=== PATIENT | female | born 1995 | race Two or more races ===

== ENCOUNTER 2018-05-31 12:16 | Inpatient (IN) | payer OTHER ==
[2018-05-31] MEDS ORDERED: CITRIC ACID/SODIUM CITRATE 30 ML UNIT-DOSE CUP PO ONE (13:00)
[2018-05-31] MEDS ORDERED: ELECTROLYTE-148 SOLN 500 ML IV ONE ×2 (13:00→13:30)
[2018-05-31 13:28] LABS: BASO % 0.2 % (0-2.0); HEMATOCRIT 39.4 % (32.4-45.2); HEMOGLOBIN 13.2 GM/dL (10.7-15.3); LYMPH % 18.4 % (8-40); MCH 29.5 pg (25.7-33.7); MCHC 33.6 g/dl (32.0-36.0); MEAN CELL VOLUME 87.9 fl (80-96); MEAN PLT VOLUME 9.1 fl (7.5-11.1); MONO % 8.1 % (3.8-10.2); NEUT % 72.3 % (42.8-82.8); PLATELET COUNT 223 K/MM3 (134-434); RBC 4.48 M/mm3 (3.60-5.2); RDW 14.8 % (11.6-15.6); WHITE BLOOD COUNT 8.5 K/mm3 (4.0-10.0)
[2018-05-31 13:39] LABS: INR 0.97 (0.83-1.09)
[2018-05-31 13:41] LABS: ACTIVATED PTT 25.9 SECONDS (25.2-36.5)
[2018-05-31 13:52] LABS: ANION GAP 9 (8-16); BLOOD UREA NITROGEN 9 mg/dL (7-18); CALCIUM 9.2 mg/dL (8.5-10.1); CHLORIDE 106 mmol/L (98-107); CO2 23 mmol/L (21-32); CREATININE 0.6 mg/dL (0.55-1.02); GLUCOSE,RANDOM 68 mg/dL (74-106); POTASSIUM 4.3 mmol/L (3.5-5.1); SODIUM 138 mmol/L (136-145)
[2018-05-31 14:34] VITALS: BMI 38.6
[2018-05-31] MEDS ORDERED: OXYTOCIN 20 UNITS in 0.9% NS 20 UNIT/1,000 ML INFUS.BAG IV ONE ×2 (16:21→17:59)
[2018-05-31] MEDS ORDERED: BUPIVACAINE 0.75% IN DEXTROSE/PF 2ML AMPULE NR ONE (16:22)
[2018-05-31] MEDS ORDERED: morphine SULFATE/Preservative Free 0.5 MG/ML (1cc Syringe) ONE (16:22)
[2018-05-31] MEDS ORDERED: ceFAZolin SODIUM 1 GM VIAL ONE (16:23)
[2018-05-31] MEDS ORDERED: PHENYLEPHRINE HCL 10 MG/1 ML SINGLE DOSE VIAL ONE (16:23)
[2018-05-31] MEDS ORDERED: OXYTOCIN 10 UNITS/ML VIAL ONE (16:50)
[2018-05-31] MEDS ORDERED: KETOROLAC TROMETHAMINE 30 MG/1 ML VIAL ONE (16:54)
[2018-05-31] MEDS ORDERED: diphenhydrAMINE HCL 25 MG CAPSULE (FP) PO PRN (17:21)
[2018-05-31] MEDS ORDERED: oxyCODONE HCL 5 MG TABLET PO PRN ×2 (17:21)
[2018-05-31] MEDS ORDERED: METHYLERGONOVINE MALEATE 0.2 MG/1 ML AMP IM PRN (17:21)
[2018-05-31] MEDS ORDERED: WITCH HAZEL 50% (TUCKS) 40 PAD/JAR PAD TP PRN (17:21)
[2018-05-31] MEDS ORDERED: BENZOCAINE 28 GM HEMORRHOIDAL OINTMENT PR PRN (17:21)
[2018-05-31] MEDS ORDERED: BENZOCAINE 20% 57 GM BOTTLE TP PRN (17:21)
--- NOTE | 2018-05-31 17:31 | HP ---
Past Medical History - Admission Chief Complaint: preganancy 40 weeks , previous c/s , request of c/s History Source: Patient Limitations to Obtaining History: No Limitations, Language Barrier - Past Medical History ...: 2 ...Para: 1 ...Term: 1 ...LMP: 08/16/17 ... Weeks Gestation by Dates: 41.1 ...EDC by Dates: 05/23/18 ...EDC by Sono: 05/25/18 - Past Surgical History Past Surgical History: Yes: Hx Myomectomy: No Hx Transabdominal Cerclage: No - Smoking History Smoking history: Never smoked Have you smoked in the past 12 months: No - Alcohol/Substance Use Hx Alcohol Use: No - Social History Usual Living Arrangement: Yes: With Spouse History of Recent Travel: No Home Medications - Allergies Allergies/Adverse Reactions: Allergies Allergy/AdvReac Type Severity Reaction Status Date / Time No Known Allergies Allergy Verified 05/31/18 12:52 - Home Medications Home Medications: Ambulatory Orders Ferrous Sulfate [Feosol] 325 mg PO DAILY 05/31/18 Ibuprofen [Motrin -] 600 mg PO QID #28 tablet 05/31/18 Vitamins (Sjr) - 1 tab PO DAILY 05/31/18 Review of Systems - Review of Systems Constitutional: reports: No Symptoms Eyes: reports: No Symptoms HENT: reports: No Symptoms Neck: reports: No Symptoms Cardiovascular: reports: No Symptoms Respiratory: reports: No Symptoms Gastrointestinal: reports: No Symptoms Genitourinary: reports: No Symptoms Musculoskeletal: reports: Extremity Pain, Muscle Cramps Neurological: reports: No Symptoms Endocrine: reports: No Symptoms Hematology/Lymphatic: reports: No Symptoms Psychiatric: reports: No Symptoms Physical Exam - Maternity Vital Signs: Vital Signs Temperature 98.5 F 05/31/18 12:16 Pulse Rate 92 H 05/31/18 12:16 Respiratory Rate 18 05/31/18 12:16 Blood Pressure 119/65 05/31/18 12:16 O2 Sat by Pulse Oximetry (%) Constitutional: Yes: Well Nourished, No Distress, Calm Eyes: Yes: WNL, Conjunctiva Clear, EOM Intact HENT: Yes: WNL, Atraumatic, Normocephalic Neck: Yes: WNL, Supple, Trachea Midline Cardiovascular: Yes: WNL, Regular Rate and Rhythm Breast(s): Yes: WNL - Abdominal Exam/OB Fundal Height: 40 Number of Fetuses: Single Presentation: Vertex Contractions: No Intensity: Unaware Monitor Mode: External Heart Rate Location: [facility] Category: I Accelerations: Uniform Decelerations: None - Vaginal Exam/OB Vaginal Bleediing: No Speculum Exam: No Dilatation (cm): closed Amniotic Membrane Status: Intact Presentation: Vertex/Position Station: -3 - Physical Exam Musculoskeletal: Yes: WNL Extremities: Yes: WNL Edema: Yes Edema: LLE: Trace, RLE: Trace Deep Tendon Reflex Grade: Normal +2 Psychiatric: Yes: WNL - Labs Lab Results: CBC, BMP 05/31/18 13:12 05/31/18 13:12 Hemorrhage Risk Assessment - Risk Factors Medium Risk Factors: Yes: Prior , uterine surgery,or multiple laparotomies Risk Score: 1 Risk Level: Medium Risk Problem List - Problems (1) Post term over 40 weeks Code(s): O48.0 - POST-TERM (2) Previous section complicating , antepartum condition or complication Code(s): O34.219 - MATERNAL CARE FOR UNSP TYPE SCAR FROM PREVIOUS DEL Assessment/Plan repeat c/s, rba discussed
[2018-05-31] MEDS ORDERED: ONDANSETRON 4 MG/2 ML VIAL IVPUSH PRN (17:39)
[2018-05-31] MEDS ORDERED: DEXTROSE 5%-LACTATED RINGERS 1,000 ML IV SCH (17:45)
[2018-05-31] MEDS ORDERED: OXYTOCIN 20 UNITS in 0.9% NS 20 UNIT/1,000 ML INFUS.BAG IV SCH (17:45)
[2018-05-31] MEDS ORDERED: CEFAZOLIN 1 GM in DEXTROSE 5%-WATER - 50 ML IVPB SCH (18:00)
[2018-05-31] MEDS: IBUPROFEN 800 MG/8 ML IJ IVPB PRN (20:03)
--- NOTE | 2018-05-31 21:07 | OP ---
DATE OF OPERATION: 05/31/2018 PREOPERATIVE DIAGNOSES: at 39 weeks, previous section, request of repeat section. POSTOPERATIVE DIAGNOSES: at 39 weeks, previous section, request of repeat section. PROCEDURE: Repeat low-segment transverse section. SURGEON: Reina Mcallister MD SCHOOL PROGRAM DIRECTOR: JEWEL Rivera ANESTHESIA: Spinal. ANESTHESIOLOGIST: Anna Espinal MD ESTIMATED BLOOD LOSS: 500 mL. FINDING: Live baby boy, 8 and 9, ROT position, cord around the neck x1. OPERATION: Patient was taken to operating room on adequate spinal anesthesia. Abdomen and perineum was prepped and draped. Pfannenstiel abdominal skin incision was made. Abdominal wall was cut layer by layer until peritoneum was exposed and incised. Upon entering the abdominal cavity, lower uterine segment was identified and uterovesical fold of peritoneum established. Bladder was pushed down. Then with the lower blade of the Joaquín retractor in the pelvis, a low transverse uterine incision was made, incision extended laterally. Amniotic sac was entered, clear fluid. Head delivered from right occiput transverse position, nasopharynx was suctioned, and live baby boy was delivered without any difficulty. Placenta was delivered manually. Uterine cavity was cleaned of all remaining tissue. Uterine incision was closed in 2 layers, 1st layer with 0 Biosyn continuous suture, the 2nd layer with 0 Biosyn imbricating the 1st layer. Bladder flap was closed with 0 Biosyn continuous suture. Both tubes and ovaries were checked, were normal, no active bleeding was seen. All the lap pad, sponge count, instrument count were correct. Then peritoneum was closed with 0 Biosyn continuous suture. Muscles were brought together with interrupted suture of 0 Biosyn. Fascia was closed with 0 Biosyn continuous suture, subcutaneous fat with interrupted suture of 0 Biosyn, and the skin was closed with vasyl. Patient tolerated procedure well, left the OR in good condition. REINA MCALLISTER M.D. /[id number]
[2018-05-31] MEDS: OXYTOCIN 20 UNITS in 0.9% NS 20 UNIT/1,000 ML INFUS.BAG IV SCH (23:11)
[2018-06-01] MEDS ORDERED: DEXTROSE 5%-WATER - 50 ML IVPB ONE ×2 (01:50→08:47)
[2018-06-01] MEDS ORDERED: ceFAZolin SODIUM 1 GM VIAL ONE ×2 (01:50→08:48)
[2018-06-01] MEDS: CEFAZOLIN 1 GM in DEXTROSE 5%-WATER - 50 ML IVPB SCH ×2 (01:55→09:06)
[2018-06-01] MEDS: OXYTOCIN 20 UNITS in 0.9% NS 20 UNIT/1,000 ML INFUS.BAG IV SCH (06:00)
[2018-06-01] MEDS: SIMETHICONE 80 MG TAB.CHEW (FP) PO PRN ×3 (06:15→18:09)
--- NOTE | 2018-06-01 07:08 | PN ---
Progress Note (short form) - Note Progress Note: pod 1, s/p repeat c/s. no c/o CBC, BMP 05/31/18 13:12 Last Vital Signs Temp Pulse Resp BP Pulse Ox 98.0 F 78 18 120/73 99 06/01/18 06:00 06/01/18 06:00 06/01/18 06:00 06/01/18 06:00 05/31/18 18:20 abdomen soft, no distension , no cva incision dry, clean no calf tenderness lochia mild nunez clear urine plan ambulate , advance diet cbc Problem List - Problems (1) Post term over 40 weeks Code(s): O48.0 - POST-TERM (2) Previous section complicating , antepartum condition or complication Code(s): O34.219 - MATERNAL CARE FOR UNSP TYPE SCAR FROM PREVIOUS DEL
[2018-06-01 07:16] LABS: BASO % 0.3 % (0-2.0); EOS % 1.5 % (0-4.5); HEMATOCRIT 35.2 % (32.4-45.2); LYMPH % 16.5 % (8-40); MCH 30.1 pg (25.7-33.7); MCHC 34.1 g/dl (32.0-36.0); MEAN CELL VOLUME 88.3 fl (80-96); MEAN PLT VOLUME 8.8 fl (7.5-11.1); MONO % 7.6 % (3.8-10.2); NEUT % 74.1 % (42.8-82.8); PLATELET COUNT 178 K/MM3 (134-434); RBC 3.99 M/mm3 (3.60-5.2); RDW 14.4 % (11.6-15.6); WHITE BLOOD COUNT 9.4 K/mm3 (4.0-10.0)
--- NOTE | 2018-06-01 08:53 | PN ---
Progress Note (short form) - Note Progress Note: Anesthesia post op/Pain Pt seen and examined S:Alert and awake comfortable O: Vital Signs Temperature 98.0 F 06/01/18 06:00 Pulse Rate 78 06/01/18 06:00 Respiratory Rate 18 06/01/18 08:00 Blood Pressure 120/73 06/01/18 06:00 O2 Sat by Pulse Oximetry (%) 99 05/31/18 18:20 CBC, BMP 06/01/18 06:00 05/31/18 13:12 A/P Current Active Problems Post term over 40 weeks (Acute) Previous section complicating , antepartum condition or complication (Acute) s/p c section Doing well post op Continue current care Fausto Fiore MD
[2018-06-01] MEDS: ENOXAPARIN NA (PORCINE) 40 MG/0.4 ML DISP.SYRIN SQ SCH (09:06)
[2018-06-01] MEDS: IBUPROFEN 800 MG/8 ML IJ IVPB PRN (09:36)
[2018-06-01] MEDS: ACETAMINOPHEN 325 MG TABLET (FP) PO PRN ×2 (14:27→20:43)
[2018-06-01] MEDS ORDERED: BISACODYL 10 MG SUPP.RECT RC PRN (17:21)
[2018-06-01] MEDS: IBUPROFEN 600 MG TABLET (FP) PO PRN (18:09)
[2018-06-02] MEDS: SIMETHICONE 80 MG TAB.CHEW (FP) PO PRN ×2 (03:49→20:59)
[2018-06-02] MEDS: ACETAMINOPHEN 325 MG TABLET (FP) PO PRN ×3 (03:49→15:47)
[2018-06-02] MEDS: IBUPROFEN 600 MG TABLET (FP) PO PRN ×3 (03:49→15:48)
[2018-06-02] MEDS: ENOXAPARIN NA (PORCINE) 40 MG/0.4 ML DISP.SYRIN SQ SCH (10:01)
--- NOTE | 2018-06-02 14:09 | PN ---
Post Progress Note - Subjective Subjective: Pt feeling well. Tolerating diet. Ambulating. +flatus Post Day: 2 Type of Delivery: Repeat C/S Vital Signs: Vital Signs Temperature 98.4 F 06/02/18 08:06 Pulse Rate 94 H 06/02/18 08:06 Respiratory Rate 18 06/02/18 08:06 Blood Pressure 112/55 06/02/18 08:06 O2 Sat by Pulse Oximetry (%) 99 05/31/18 18:20 Breast Exam: Yes: Soft Uterus: Yes: Fundus Firm Incision: Yes: Mercy intact Abdomen/GI: Yes: Abdomen soft Lochia: Yes: Serosa Lochia, amount: Small Extremities: Yes: Calves non-tender Activity: Ambulating - Labs Labs: CBC WBC 9.4 K/mm3 (4.0-10.0) 06/01/18 06:00 RBC 3.99 M/mm3 (3.60-5.2) 06/01/18 06:00 Hgb 12.0 GM/dL (10.7-15.3) 06/01/18 06:00 Hct 35.2 % (32.4-45.2) 06/01/18 06:00 MCV 88.3 fl (80-96) 06/01/18 06:00 MCH 30.1 pg (25.7-33.7) 06/01/18 06:00 MCHC 34.1 g/dl (32.0-36.0) 06/01/18 06:00 RDW 14.4 % (11.6-15.6) 06/01/18 06:00 Plt Count 178 K/MM3 (134-434) D 06/01/18 06:00 MPV 8.8 fl (7.5-11.1) 06/01/18 06:00 Absolute Neuts (auto) 7.0 # 06/01/18 06:00 Neutrophils % 74.1 % (42.8-82.8) 06/01/18 06:00 Lymphocytes % 16.5 % (8-40) 06/01/18 06:00 Monocytes % 7.6 % (3.8-10.2) 06/01/18 06:00 Eosinophils % 1.5 % (0-4.5) 06/01/18 06:00 Basophils % 0.3 % (0-2.0) 06/01/18 06:00 Nucleated RBC % 0 % (0-0) 06/01/18 06:00 Problem List - Problems (1) S/P repeat low transverse Assessment/Plan: Pt POD #2 s/p rpt c/s doing well ambulation encouraged incentive spirometry pain management as needed routine postop care Dr. Christie Code(s): Z98.891 - HISTORY OF UTERINE SCAR FROM PREVIOUS SURGERY
[2018-06-02] MEDS ORDERED: SENNOSIDES/DOCUSATE COMBO (SENNA PLUS) TABLET (UD) PO PRN (22:00)
[2018-06-03] MEDS: IBUPROFEN 600 MG TABLET (FP) PO PRN ×3 (05:53→20:52)
[2018-06-03] MEDS: SIMETHICONE 80 MG TAB.CHEW (FP) PO PRN ×3 (05:53→20:51)
[2018-06-03] MEDS: ACETAMINOPHEN 325 MG TABLET (FP) PO PRN ×3 (05:53→20:52)
[2018-06-03 08:27] LABS: BASO % 0.2 % (0-2.0); EOS % 2.2 % (0-4.5); HEMATOCRIT 33.2 % (32.4-45.2); HEMOGLOBIN 11.2 GM/dL (10.7-15.3); LYMPH % 12.2 % (8-40); MCH 29.9 pg (25.7-33.7); MCHC 33.8 g/dl (32.0-36.0); MEAN CELL VOLUME 88.4 fl (80-96); MEAN PLT VOLUME 7.9 fl (7.5-11.1); MONO % 6.1 % (3.8-10.2); NEUT % 79.3 % (42.8-82.8); PLATELET COUNT 221 K/MM3 (134-434); RBC 3.76 M/mm3 (3.60-5.2); RDW 14.8 % (11.6-15.6); WHITE BLOOD COUNT 11.2 K/mm3 (4.0-10.0)
--- NOTE | 2018-06-03 10:35 | PN ---
Post Progress Note - Subjective Subjective: Pt without complaints Post Day: 3 Type of Delivery: Repeat C/S Vital Signs: Vital Signs Temperature 98.8 F 06/03/18 08:27 Pulse Rate 97 H 06/03/18 08:27 Respiratory Rate 18 06/03/18 08:27 Blood Pressure 135/71 06/03/18 08:27 O2 Sat by Pulse Oximetry (%) 99 05/31/18 18:20 Breast Exam: Yes: Soft Uterus: Yes: Fundus Firm Incision: Yes: Mercy intact Abdomen/GI: Yes: Abdomen soft Lochia: Yes: Rubra Lochia, amount: Small Extremities: Yes: Calves non-tender Activity: Ambulating - Labs Labs: CBC WBC 11.2 K/mm3 (4.0-10.0) H 06/03/18 08:15 RBC 3.76 M/mm3 (3.60-5.2) 06/03/18 08:15 Hgb 11.2 GM/dL (10.7-15.3) 06/03/18 08:15 Hct 33.2 % (32.4-45.2) 06/03/18 08:15 MCV 88.4 fl (80-96) 06/03/18 08:15 MCH 29.9 pg (25.7-33.7) 06/03/18 08:15 MCHC 33.8 g/dl (32.0-36.0) 06/03/18 08:15 RDW 14.8 % (11.6-15.6) 06/03/18 08:15 Plt Count 221 K/MM3 (134-434) D 06/03/18 08:15 MPV 7.9 fl (7.5-11.1) D 06/03/18 08:15 Absolute Neuts (auto) 8.9 # 06/03/18 08:15 Neutrophils % 79.3 % (42.8-82.8) 06/03/18 08:15 Lymphocytes % 12.2 % (8-40) D 06/03/18 08:15 Monocytes % 6.1 % (3.8-10.2) 06/03/18 08:15 Eosinophils % 2.2 % (0-4.5) 06/03/18 08:15 Basophils % 0.2 % (0-2.0) 06/03/18 08:15 Nucleated RBC % 0 % (0-0) 06/03/18 08:15 Problem List - Problems (1) S/P repeat low transverse Assessment/Plan: Pt POD#3 s/p rpt c/s continue routine pp care Dr. Christie Code(s): Z98.891 - HISTORY OF UTERINE SCAR FROM PREVIOUS SURGERY
[2018-06-03] MEDS: ENOXAPARIN NA (PORCINE) 40 MG/0.4 ML DISP.SYRIN SQ SCH (11:37)
[2018-06-04 08:38] VITALS: BP 130/88; PULSE 80; TEMP 98.5
[2018-06-04] MEDS: IBUPROFEN 600 MG TABLET (FP) PO PRN (09:34)
[2018-06-04] MEDS: ACETAMINOPHEN 325 MG TABLET (FP) PO PRN (09:36)
[2018-06-04] MEDS: ENOXAPARIN NA (PORCINE) 40 MG/0.4 ML DISP.SYRIN SQ SCH (09:42)
[2018-06-04] MEDS: SIMETHICONE 80 MG TAB.CHEW (FP) PO PRN (09:42)
--- NOTE | 2018-06-04 15:59 | DS ---
Physical Exam-ORGANIZATIONAL CONSULTANT Vital Signs: Vital Signs Temperature 98.5 F 06/04/18 08:36 Pulse Rate 80 06/04/18 08:36 Respiratory Rate 18 06/04/18 08:36 Blood Pressure 130/88 06/04/18 08:36 O2 Sat by Pulse Oximetry (%) 99 05/31/18 18:20 Constitutional: Yes: Well Nourished, No Distress, Calm Eyes: Yes: WNL, Conjunctiva Clear, EOM Intact HENT: Yes: WNL, Atraumatic, Normocephalic Neck: Yes: WNL, Supple, Trachea Midline Cardiovascular: Yes: WNL, Regular Rate and Rhythm Respiratory: Yes: WNL, Regular, CTA Bilaterally Gastrointestinal: Yes: WNL ...Rectal Exam: Yes: WNL Renal/: Yes: WNL ....Post : Yes: Uterus firm, Uterus non-tender, Slight lochia rubra Breast(s): Yes: WNL Musculoskeletal: Yes: WNL Extremities: Yes: WNL Integumentary: Yes: WNL Wound/Incision: Yes: Clean/Dry, Well Approximated Neurological: Yes: WNL, Alert, Oriented ...Motor Strength: WNL Psychiatric: Yes: WNL, Alert, Oriented Labs: CBC, BMP 06/03/18 08:15 05/31/18 13:12 Delivery - Delivery Section: Repeat (no complication), Low Flap Transverse Type of Anesthesia: Spinal Episiotomy/Laceration: None EBL (cc): 500 Delivery, Single - Stages of Labor Date of Delivery: 05/31/18 Time of Delivery: 16:48 Time Placenta Delivered: 16:49 Placenta: Yes: Expressed - Condition of Teachers' Aide/Form Layer Present: Yes Name: Jose Shanks Gender: Male Weight: 8 lb 7 oz Position: Right, OT Total Hours ROM (Hrs/Mins): 2mins - 1 Minute Total Score: 8 5 Minutes Total Score: 9 - [place] Feeding Plan Initial Plan: Elected not to breastfeed exclusively throughout hospitalization Discharge Summary Reason For Visit: Current Active Problems Post term over 40 weeks (Acute) Previous section complicating , antepartum condition or complication (Acute) S/P repeat low transverse (Acute) Procedures: Principal: repeat LST c/s Hospital Course: no complication Condition: Good - Instructions Diet, Activity, Other Instructions: regular diet, follow up clinic 1 week Disposition: HOME - Home Medications Comprehensive Discharge Medication List: Ambulatory Orders Ferrous Sulfate [Feosol] 325 mg PO DAILY 05/31/18 Ibuprofen [Motrin -] 600 mg PO QID #28 tablet 05/31/18 Vitamins (Sjr) - 1 tab PO DAILY 05/31/18
--- NOTE | 2018-06-06 15:38 | PATH ---
Surgical Pathology Report Patient Name: KENNEDY GE [facility]. Rec. 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 Specimen(s) Received PLACENTA Clinical History , 40.6 weeks, late transfer to care at 19 weeks Final Diagnosis PLACENTA, : MATURE TRIMESTER PLACENTA WITH TRIVESSEL UMBILICAL CORD AND SHOWING MILD ACUTE CHORIOAMNIONITIS. Electronically Signed Maryana Lewis M.D. Gross Description The specimen is received fresh labeled placenta and is a 506 gram, 23.0 x 14.0 x 2.2 cm. placenta with attached membranes and umbilical cord. The attached membranes are kern, translucent with focal opacities and insert marginally. The umbilical cord measures 39 cm. in length and averages 1.2 cm. in diameter. The cord inserts eccentrically, 2 cm. to the nearest margin. No true knots or strictures are identified. Cut surface of the umbilical cord reveals 3 vessels. The surface is renee-blue with minimal fibrin deposition and appropriate caliber vessels. The maternal surface is red-brown with focal defects. Sectioning reveals red-brown, spongy parenchyma. No lesions are identified. Duco Polisher sections are submitted in three cassettes as follows: 1- membrane rolls and umbilical cord; 2-3- full thickness sections of placenta. 06/05/201806/05/2018
== END 2018-06-04 20:25 | disposition home or self-care (01) | DRG 540 ==
LOC: JLDR 12:16 → J3W 19:10
PROVIDERS: ADMIT Obstetrics & Gynecology; ATTEND Obstetrics & Gynecology
PROC: 10D00Z1 Extraction of Products of Conception, Low, Open Approach (ICD-10-PCS; principal; 2018-05-31)
DX: O34.211 Maternal care for low transverse scar from previous cesarean delivery (principal); O48.0 Post-term pregnancy; O69.81X0 Labor and delivery complicated by cord around neck, without compression, not applicable or unspecified; Z3A.40 40 weeks gestation of pregnancy; Z37.0 Single live birth
CPT/HCPCS: 36415; 80048; 85025; 85610; 85730; 86593; 86850; 86900; 86901; 88307-TC

== ENCOUNTER 2020-06-15 11:27 | Emergency (ER) | payer OTHER ==
--- NOTE | 2020-06-15 11:46 | PDOC ---
Rapid Medical Evaluation Time Seen by Provider: 06/15/20 11:44 Medical Evaluation: Allergies Allergy/AdvReac Type Severity Reaction Status Date / Time No Known Allergies Allergy Verified 06/15/20 11:44 06/15/20 11:46 I have performed a brief in-person evaluation of this patient. The patient presents with a chief complaint of:chest pain and IBARRA since yesterday. No sig pmhx Pertinent physical exam findings:stable, well genia I have ordered the following:ekg done at triage The patient will proceed to the ED for further evaluation. Discharge Disposition - Diagnosis Chest pain Qualifiers: Chest pain type: unspecified Qualified Code(s): R07.9 - Chest pain, unspecified - Referrals - Patient Instructions - Post Discharge Activity
[2020-06-15 11:48] VITALS: BP 119/72; PULSE 71; BMI 33.6
[2020-06-15] MEDS ORDERED: ACETAMINOPHEN 500 MG TABLET (FP) PO ONE (14:55)
--- NOTE | 2020-06-15 14:59 | PDOC ---
History of Present Illness <Carla Sullivan - Last Filed: 06/15/20 15:35> - General History Source: Patient Exam Limitations: Clinical Condition - History of Present Illness Initial Comments: 06/15/20 14:53 Patient with no significant past medical history present with complaint of midsternal chest pain since yesterday which is worse with deep breathing. Patient reported pain started all of a sudden while she was sleeping in bed. Denies shortness of breath, numbness or tingling sensation, fever, chills, cough. Denies family history of cardiomyopathy or MIs. Denies nausea, vomiting, dizziness. Patient has not taken anything for symptoms Is this a multiple visit Asthma Patient?: No Timing/Duration: 24 hours <Holland Green - Last Filed: 06/15/20 17:26> - General Chief Complaint: Chest Pain Stated Complaint: CHEST PAIN Time Seen by Provider: 06/15/20 11:44 Past History <Carla Sullivan - Last Filed: 06/15/20 15:35> - Medical History Asthma: No Cancer: No Cardiac Disorders: No COPD: No Diabetes: No HTN: No Seizures: No Thyroid Disease: No - Reproductive History Is Patient Now?: No - Psycho-Social/Smoking History Smoking History: Never smoked Have you smoked in the past 12 months: No - Substance Abuse Hx (Audit-C & DAST Scrn) How often the patient has a drink containing alcohol: Monthly or less Score: In Men: 4 or > Positive; In Women: 3 or > Positive: 1 Screen Result (Pos requires Nsg. Audit-10AR): Negative In the last yr the pt used illegal drug/Rx for NonMed reason: No Score: Yes response is considered Positive: 0 Screen Result (Positive result requires Nsg. DAST-10): Negative <Holland Green - Last Filed: 06/15/20 17:26> - Medical History Allergies/Adverse Reactions: Allergies Allergy/AdvReac Type Severity Reaction Status Date / Time No Known Allergies Allergy Verified 06/15/20 11:44 Home Medications: Ambulatory Orders NK [No Known Home Medication] 06/15/20 Review of Systems - Review of Systems Able to Perform ROS?: Yes Is the patient limited Hebrew proficient: No Constitutional: No: Chills, Fever, Malaise HEENTM: No: Symptoms Reported, See HPI, Eye Pain, Blurred Vision, Tearing, Recent change in vision, Double Vision, Cataracts, Ear Pain, Ocular Prothesis, Ear Discharge, Nose Pain, Nose Congestion, Tinnitus, Nose Bleeding, Hearing Loss, Throat Pain, Throat Swelling, Mouth Pain, Dental Problems, Difficulty Swallowing, Mouth Swelling, Other Respiratory: No: Symptoms reported, See HPI, Cough, Orthopnea, Shortness of Breath, SOB with Exertion, SOB at Rest, Stridor, Wheezing, Productive cough, Hemoptysis, Other Cardiac (ROS): Yes: Symptoms Reported, See HPI, Chest Pain (mid-sternal chest p ain). No: Edema, Irregular Heart Rate, Lightheadedness, Palpitations, Syncope, Chest Tightness, Other ABD/GI: No: Symptoms Reported, See HPI, Constipated, Diarrhea, Nausea, Vomiting, Abdominal cramping Musculoskeletal: No: Symptoms Reported Integumentary: No: Symptoms Reported Neurological: No: Symptoms reported, Headache, Weakness, Dizziness All Other Systems: Reviewed and Negative <Holland Green - Last Filed: 06/15/20 17:26> *Physical Exam - Vital Signs Last Vital Signs Temp Pulse Resp BP Pulse Ox 71 18 119/72 99 06/15/20 11:45 06/15/20 11:45 06/15/20 11:45 06/15/20 11:45 <LaurieCarlagisell Bennett - Last Filed: 06/15/20 15:35> - Vital Signs Last Vital Signs Temp Pulse Resp BP Pulse Ox 71 18 119/72 99 06/15/20 11:45 06/15/20 11:45 06/15/20 11:45 06/15/20 11:45 - Physical Exam 06/15/20 14:56 GENERAL: Well developed, well nourished. Awake and alert. No acute distress. HEENT: Normocephalic, atraumatic. PERRLA, EOMI. No conjunctival pallor. Sclera are non-icteric. Moist mucous membranes. Oropharynx is clear. NECK: Supple. Full ROM. CARDIOVASCULAR: Mild reproducible lower midsternal chest tenderness. Regular rate and rhythm. No murmurs, rubs, or gallops. Distal pulses are 2+ and symmetric. PULMONARY: No evidence of respiratory distress. Lungs clear to auscultation bilaterally. No wheezing, rales or rhonchi. ABDOMINAL: Soft. Non-tender. Non-distended. No rebound or guarding. No organomegaly. Normoactive bowel sounds. MUSCULOSKELETAL Normal range of motion at all joints. No calf tenderness or peripheral edema SKIN: Warm and dry. Normal capillary refill. No rashes. No jaundice. No cyanosis NEUROLOGICAL: Alert, awake, appropriate. Gait is normal without ataxia. PSYCHIATRIC: Cooperative. Good eye contact. Appropriate mood General Appearance: Yes: Nourished, Appropriately Dressed. No: Apparent Distress <NormaHolland jason - Last Filed: 06/15/20 17:26> ED Treatment Course - LABORATORY CBC & Chemistry Diagram: 06/15/20 14:30 06/15/20 14:30 - ADDITIONAL ORDERS Additional order review: Laboratory Results 06/15/20 14:30 Serum , Qual Negative 06/15/20 14:30 RBC 4.90 MCV 90.7 MCHC 32.9 RDW 13.6 MPV 9.2 D Neutrophils % 55.4 D Lymphocytes % 34.6 D Monocytes % 7.5 Eosinophils % 2.0 Basophils % 0.5 - Medications Given in the ED: ED Medications Discontinued Medications Generic Name Dose Route Start Last Admin Trade Name Freq PRN Reason Stop Dose Admin Acetaminophen 1,000 mg 06/15/20 14:55 06/15/20 15:13 Tylenol - PO 06/15/20 14:56 1,000 mg ONCE ONE Administration <Carla Sullivan - Last Filed: 06/15/20 15:35> - LABORATORY CBC & Chemistry Diagram: 06/15/20 14:30 06/15/20 14:30 - RADIOLOGY Radiology Studies Ordered: Category Date Time Status CHEST PA & LAT [RAD] Stat Radiology 06/15/20 14:37 Ordered <NormaHolland jason - Last Filed: 06/15/20 17:26> Medical Decision Making - Medical Decision Making The patient was seen and evaluated in conjunction with midlevel provider under my direct supervision, ancillary studies were reviewed. I agree with the plan as outlined withBRITTANY Birch. HPI, workup/dispo as outlined. VS reviewed, wnl. Laboratory results, EKG, troponin, chest x-ray reassess anticipate discharge, pcp followup, return precautions 06/15/20 15:35 <Carla Sullivan - Last Filed: 06/15/20 15:35> - Medical Decision Making 06/15/20 14:58 Patient with no significant past medical history present with complaint of midsternal chest pain since yesterday which is worse with deep breathing. Patient reported pain started all of a sudden while she was sleeping in bed. Denies shortness of breath, numbness or tingling sensation, fever, chills, cough. Denies family history of cardiomyopathy or MIs. Denies nausea, vomiting, dizziness. Patient has not taken anything for symptoms Exam significant for mild reproducible lower midsternal tenderness otherwise unremarkable exam. Patient in no acute distress. Normal cardio and lung exam. No abdominal tenderness exam. EKG done shows normal sinus rhythm. Patient symptoms likely costochondritis versus less likely cardiogenic pain. We will do one troponin, CBC and chemistry lab ordered. Chest x-ray ordered to rule out acute chest abnormality. Tylenol thousand milligrams p.o. ordered for costochondral pain. Treat based on lab and imaging results 06/15/20 17:08 Its been over 2 hours and patient chemistry lab is still pending. Call chemistry lab and check was having a hard time locating patient specimen even though serum test was already run. Spoke to lab laboratory supervisor which helped set for specimen and now found specimen which will be run now for patient troponins. CBC and chest x-ray unremarkable. Patient asymptomatic at this ti mt. Dispo based on chemistry and troponin lab 06/15/20 17:25 Troponins negative and chemistry within normal limit. Patient stable for discharge to take Tylenol as needed for costochondral pain with cardiology and PCP follow-up <Holland Green - Last Filed: 06/15/20 17:26> Discharge <Carla Sullivan - Last Filed: 06/15/20 15:35> - Discharge Information Problems reviewed: Yes - Admission No <Holland Green - Last Filed: 06/15/20 17:26> - Discharge Information Clinical Impression/Diagnosis: Acute costochondritis Chest pain Qualifiers: Chest pain type: unspecified Qualified Code(s): R07.9 - Chest pain, unspecified Condition: Improved Disposition: HOME - Follow up/Referral Referrals: Walter Dominguez MD [Staff Physician] - - Patient Discharge Instructions Patient Printed Discharge Instructions: DI for Costochondritis Additional Instructions: Your blood work is normal. Your EKG is normal. Your chest x-ray is normal. Your symptoms likely from muscle pain. Take Tylenol as needed for pain. 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 Ramirez ECG es normal. Ramirez radiografa de trax es normal. Cierra sntomas probablemente se deben al dolor muscular. [place] Tylenol seg n sea necesario para el dolor. Los sntomas del cardilogo derivado de seguimiento persisten; de lo contrario, realice un seguimiento con ramirez atencin primaria
[2020-06-15 15:08] LABS: BASO % 0.5 % (0-2.0); HEMATOCRIT 44.4 % (32.4-45.2); HEMOGLOBIN 14.6 GM/dL (10.7-15.3); LYMPH % 34.6 % (8-40); MCH 29.8 pg (25.7-33.7); MCHC 32.9 g/dl (32.0-36.0); MEAN CELL VOLUME 90.7 fl (80-96); MEAN PLT VOLUME 9.2 fl (7.5-11.1); MONO % 7.5 % (3.8-10.2); NEUT % 55.4 % (42.8-82.8); PLATELET COUNT 261 K/MM3 (134-434); RDW 13.6 % (11.6-15.6)
[2020-06-15] MEDS ORDERED: ACETAMINOPHEN 500 MG TABLET (FP) ONE (15:12)
[2020-06-15 17:22] LABS: BILIRUBIN,TOTAL 0.4 mg/dL (0.2-1); BLOOD UREA NITROGEN 7.4 mg/dL (7-18); CALCIUM 9.3 mg/dL (8.5-10.1); GLUCOSE,RANDOM 85 mg/dL (74-106); MAGNESIUM 2.3 mg/dL (1.8-2.4); SGOT/AST 24 U/L (15-37); SODIUM 138 mmol/L (136-145); TOT PROT 7.8 g/dl (6.4-8.2)
[2020-06-15 17:23] LABS: ALBUMIN 4.3 g/dl (3.4-5.0); ALK PHOS 61 U/L (45-117); ANION GAP 6 MMOL/L (8-16); CHLORIDE 107 mmol/L (98-107); CO2 25 mmol/L (21-32); CREATININE 0.7 mg/dL (0.55-1.3); POTASSIUM 4.6 mmol/L (3.5-5.1); SGPT/ALT 41 U/L (13-61)
--- NOTE | 2020-06-16 09:09 | EKG ---
Test Reason : Blood Pressure : / mmHG Vent. Rate : 081 BPM Atrial Rate : 081 BPM P-R Int : 146 ms QRS Dur : 074 ms QT Int : 372 ms P-R-T Axes : 054 054 029 degrees QTc Int : 432 ms NORMAL SINUS RHYTHM NORMAL ECG NO PREVIOUS ECGS AVAILABLE Confirmed by Malik Zamorano MD ([id number]) on 06/16/2020 9:08:48 AM Referred By: Confirmed By:Malik Zamorano MD
== END 2020-06-15 17:26 | disposition home or self-care (01) ==
LOC: JER 11:27
DX: M94.0 Chondrocostal junction syndrome [Tietze] (principal)
CPT/HCPCS: 36415; 71046-TC-FY; 80053; 82550; 83735; 84484; 84703; 85025; 93005; 93010; 99285-25